=== PATIENT | male | born 1945 | race Caucasian/White ===

== ENCOUNTER 2021-10-19 07:44 | Day surgery (SDC) | payer MEDICARE ==
[2021-10-13 18:12] VITALS: BMI 25.5
--- NOTE | 2021-10-17 06:44 | P.GSHP ---
History of Present Illness H&P Date: 10/17/21 Chief Complaint: Hematuria, left flank pain Patient is 76-year-old white male with a history of urolithiasis and kidney stones. He has never required surgery for his kidney stones. He has recently experienced left flank discomfort, which she states resolved with NSAIDs. He denies dysuria but reports gross hematuria. CT scan shows left hydronephrosis due to a 2.1 cm left proximal ureteral calculus. Multiple left lower pole renal calculi measuring up to 1.6 cm in size were also seen. The CT scan suggests the presence of a pancreatic mass, but none was seen on MRI. He underwent cystoscopy, left ureteral stent insertion. Bloody reflux of urine from the left ureteral orifice was seen. He was also found to have a 2 cm bladder calculus. - Constitutional Constitutional: Denies chills, Denies fever - Genitourinary (Male) Genitourinary: Reports flank pain, Reports hematuria, Reports kidney stones Past Medical History Past Medical History: Hearing Disorder / Deafness, Hypertension Additional Past Medical History / Comment(s): History of kidney stones; malaria;. CAHUILLA History of Any Multi-Drug Resistant Organisms: None Reported Past Surgical History: Back Surgery Additional Past Surgical History / Comment(s): lumbar laminectomy 1986, CYSTOSC OPY WITH STENT PLACEMENT, Past Anesthesia/Blood Transfusion Reactions: No Reported Reaction Smoking Status: Never smoker - Past Family History Mother History Unknown: Yes Family Medical History: No Reported History Medications and Allergies Home Medications Medication Instructions Recorded Confirmed Type Cefuroxime Axetil [Ceftin] 500 mg PO BID 4 Days #8 tab 10/09/21 10/13/21 Rx amLODIPine [Norvasc] 10 mg PO DAILY 30 Days #30 tab 10/09/21 10/13/21 Rx Allergies Allergy/AdvReac Type Severity Reaction Status Date / Time Penicillins Allergy Unknown Verified 10/13/21 17:27 Surgical - Exam - General well developed, well nourished, no distress - Respiratory normal respiratory effort - Abdomen Abdomen: soft, non tender, no guarding, no rigid, no rebound Hernia: umbilical - Genitourinary normal penis with no external lesions, testicles non-tender - Psychiatric oriented to time, oriented to person, oriented to place, speech is normal, memory intact Results - Imaging CT scan - abdomen: report reviewed, image reviewed Assessment and Plan (1) Calculus in bladder Status: Acute Code(s): N21.0 - CALCULUS IN BLADDER SNOMED Code(s): 63535415 (2) Ureterolithiasis Status: Acute Code(s): N20.1 - CALCULUS OF URETER SNOMED Code(s): 66313032 Plan: Cystoscopy, cystolithotripsy, left ureteral stent removal, left ureteroscopy with Holmium laser lithotripsy and possible stone basketing. The patient has multiple left lower pole renal calculi and has been advised to undergo a left percutaneous nephrolithotomy, which he refuses due to the requirement of an external nephrostomy tube. Given the stone burden of the bladder calculus and ureteral calculus, multiple procedures may be required. The procedure has been reviewed in detail with the patient. He is aware of potential risks, which include anesthesia, bleeding, infection, bladder perforation, and ureteral injury.
[~2021-10-19 07:44] MED LIST: DEXAMETHASONE SOD PHOSPHATE 4 MG/ML 1 ML VIAL IV ONE; HYDROmorphone 0.5 MG/0.5 ML SYRINGE IVP PRN; LACTATED RINGERS 1,000 ML IV SCH; MIDAZOLAM 2 MG/2 ML VIAL IV PRN; ONDANSETRON 4 MG/2 ML VIAL IVP ONE
--- NOTE | 2021-10-19 08:12 | XR ---
EXAMINATION TYPE: XR KUB DATE OF EXAM: 10/19/2021 Comparison: None Clinical History: 76-year-old male into 0.1, preop for left-sided kidney stone N20.1 Findings: Left-sided ureteral stent in place. Large calcifications projecting at the lower pole of the left kid giana with aggregate dimension of 2.4 cm. Additional large calculus in the lower left side of the pelvi s along the distal course of the stent measuring 2.0 cm. Additional large 2.0 cm calcification along the proximal third left ureteral stent. Pelvic phleboliths. Nonobstructive bowel gas pattern. Degener ation and axial convex curvature of the lumbar spine. Impression: 1. Left-sided ureteral stent. 2.0 cm chunky calculus along the proximal third left ureter. 2. 2.4 cm calculus lower pole left kidney. 3. 2.0 cm bladder calculus.
[2021-10-19 08:52] VITALS: RESP 16
[2021-10-19] MEDS ORDERED: fentaNYL (PF) 50 MCG/ML 2 ML AMP ONE (09:48)
[2021-10-19] MEDS ORDERED: ePHEDrine 50 MG/ML 1 ML AMP ONE (09:48)
[2021-10-19] MEDS ORDERED: PHENYLEPHRINE-0.9% NACL SYG 1,000 MCG/10 ML SYRINGE ONE (09:48)
[2021-10-19] MEDS ORDERED: HYDROmorphone (PF) 1 MG/ML ONE (09:48)
[2021-10-19] MEDS ORDERED: MIDAZOLAM 2 MG/2 ML VIAL ONE (09:48)
[2021-10-19] MEDS ORDERED: SUCCINYLCHOLINE CHLORIDE 100 MG/5 ML SYR IV ONE (09:48)
[2021-10-19] MEDS ORDERED: PROPOFOL 10 MG/ML 20 ML VIAL IV ONE (09:48)
[2021-10-19] MEDS ORDERED: LACTATED RINGERS 1,000 ML IV ONE (12:05)
[2021-10-19 12:26] VITALS: TEMP 98.1
--- NOTE | 2021-10-19 12:44 | FL ---
Fluoroscopy HISTORY: Ureteral stone removal and stent placement 11 seconds fluoroscopy time supplied to the referring clinician. 6 intraoperative C-arm images docum ent the procedure. See dictated report from urology.
[2021-10-19 13:54] VITALS: BP 152/74; PULSE 73
--- NOTE | 2021-11-05 18:28 | P.OP ---
Date of Procedure: 10/19/21 Preoperative Diagnosis: Left ureteral calculus, bladder calculus Postoperative Diagnosis: Same Procedure(s) Performed: Cystoscopy, left ureteroscopy with Holmium laser lithotripsy, left ureteral stent insertion Anesthesia: MARY ANN Surgeon: Hai Reyes Estimated Blood Loss (ml): 0 IV fluids (ml): 1,000 Pathology: none sent Condition: stable Disposition: PACU Indications for Procedure: Patient is 76-year-old white male with a history of urolithiasis and kidney stones. He has never required surgery for his kidney stones. He has recently experienced left flank discomfort, which she states resolved with NSAIDs. He denies dysuria but reports gross hematuria. CT scan shows left hydronephrosis due to a 2.1 cm left proximal ureteral calculus. Multiple left lower pole renal calculi measuring up to 1.6 cm in size were also seen. The CT scan suggests the presence of a pancreatic mass, but none was seen on MRI. He underwent cystoscopy, left ureteral stent insertion. Bloody reflux of urine from the left ureteral orifice was seen. He was also found to have a 2 cm bladder calculus. Operative Findings: Large left mid ureteral calculus, partially fragmented. Bladder calculus, untreated. Description of Procedure: The patient was taken to the operating room and placed in the dorsolithotomy position, with legs supported in Austin stirrups. The external genitalia was prepped and draped sterilely. The 30 lens was used to introduce the 22-Liberian Stortz cystoscopic sheath through the urethra and into the bladder under direct vision. The prostatic urethra showed evidence of mild lateral lobe enlargement. Upon entering the bladder, a 2 cm bladder calculus was seen. The distal end of the left ureteral stent was grasped with grasping forceps and removed along with the cystoscope. The [employer] semirigid ureteroscope was advanced into the bladder under direct vision. The left ureteral orifice was cannulated, and the ureteroscope was slowly advanced under direct vision. However, due to ureteral angulation the midureteral calculus could not be reached. Therefore, a 0.035 inch Glidewire was passed through the ureteroscope and up to the renal pelvis. A second Glidewire was then placed, and an 11/13-Liberian ureteral access catheter was passed over that wire, up to the calculus. The Zaldivar flexible ureteroscope was then passed through the ureteral access catheter sheath and up to the calculus. The 270 holmium laser probe was then used to perform lithotripsy. The calculus was extremely dense, making fragmentation difficult. The calculus was adherent to the mucosa in some areas. The lateral half of the calculus was fragmented, creating an open lumen within the ureter. However, the medial aspect of the calculus appeared impacted within the ureteral wall, and due to angulation fragmentation of this portion of the calculus was difficult. As a considerable amount of fragmentation had been performed, the decision was made to terminate the procedure. There was no evidence of ureteral perforation. The ureteral access catheter sheath was removed along with the ureteroscope. The Glidewire was backloaded into the cystoscope, which was passed into the bladder. A 28 cm, 6-Liberian double-J ureteral stent was placed over the wire. Proper stent positioning was verified fluoroscopically and endoscopically. The bladder was emptied and the cystoscope removed. The patient tolerated the procedure well was taken to the recovery room in stable condition.
== END 2021-10-19 14:09 | disposition home or self-care (01) ==
LOC: OR 07:44
PROVIDERS: ATTEND Urology
DX: N20.1 Calculus of ureter (principal); Z87.442 Personal history of urinary calculi; H91.90 Unspecified hearing loss, unspecified ear; I10 Essential (primary) hypertension; Z98.890 Other specified postprocedural states; Z79.899 Other long term (current) drug therapy; Z88.0 Allergy status to penicillin
CPT/HCPCS: 74018; 52356; C2625; C1769; J2250; J1100; J0690; J2405; J3010; J1170; J2370; J0330; J2704

== ENCOUNTER → 2021-11-17 | Day surgery (SDC) | payer MEDICARE ==
[2021-11-16 09:11] VITALS: BMI 25.6
[~2021-11-17] MED LIST changes: +GLYCOPYRROLATE 0.2 MG/ML 2 ML VIAL ONE; +HYDROmorphone (PF) 1 MG/ML ONE; +LACTATED RINGERS 1,000 ML IV ONE; +LIDOCAINE 1% INJ 10MG/ML (20 ML MDV) ONE; +MIDAZOLAM 2 MG/2 ML VIAL IVP ONE; +MIDAZOLAM 2 MG/2 ML VIAL ONE; +NEOSTIGMINE 1 MG/ML 10 ML VIAL ONE; +PHENYLEPHRINE-0.9% NACL SYG 1,000 MCG/10 ML SYRINGE ONE; +PROPOFOL 10 MG/ML 20 ML VIAL IV ONE; +ROCURONIUM 10 MG/ML (5 ML VIAL) IV ONE; +SUCCINYLCHOLINE CHLORIDE VIAL 200 MG/10 ML VIAL IV ONE; +ePHEDrine 50 MG/ML 1 ML VIAL ONE; +fentaNYL (PF) 50 MCG/ML 2 ML AMP ONE
--- NOTE | 2021-11-17 10:49 | XR ---
EXAMINATION TYPE: XR KUB DATE OF EXAM: 11/17/2021 COMPARISON: X-ray dated 10/19/2021 INDICATION: Preoperative lithotripsy TECHNIQUE: Standard 2 views of the abdomen FINDINGS: Left double-J ureteric stent. Persistent left upper to mid ureteric stone measuring up to 2.4 cm with tiny adjacent millimetric calculus. Persistent cluster of stones at the lower pole of the left kidne y measuring together up to 3.7 cm. Tiny more superior adjacent calculi measuring up to 5 mm. Persistent left urinary bladder stone measu ring up to 2.2 cm. Degenerative changes of the lumbar spine most evident at L4-5 level. IMPRESSION: Persistent urinary calculi and left-sided double-J ureteric stent as described above.
[2021-11-17 15:33] VITALS: TEMP 98
[2021-11-17 15:39] VITALS: RESP 16
--- NOTE | 2021-11-17 15:52 | FL ---
Fluoroscopy HISTORY: Left ureteral calculus 21 seconds fluoroscopy time supplied to the referring clinician. 1 intraoperative C-arm images docum ent the procedure. See dictated report from urology.
--- NOTE | 2021-11-17 17:15 | P.OP ---
Date of Procedure: 11/17/21 Preoperative Diagnosis: Left ureteral calculus, bladder calculus Postoperative Diagnosis: Same Procedure(s) Performed: Cystoscopy, left ureteroscopy with Holmium laser lithotripsy and stone basketing, left ureteral stent change, cystolithotripsy Anesthesia: MARY ANN Surgeon: Hai Reyes Estimated Blood Loss (ml): 10 IV fluids (ml): 800 Pathology: other (Calculus fragments, sent for chemical analysis) Condition: stable Disposition: PACU Indications for Procedure: The patient is 76-year-old white male with a history of urolithiasis and kidney stones. He has never required surgery for his kidney stones. He recently experienced left flank discomfort associated with gross hematuria. CT scan showed left hydronephrosis due to a 2.1 cm left proximal ureteral calculus. Multiple left lower pole renal calculi measuring up to 1.6 cm in size were also seen. The CT scan suggested the presence of a pancreatic mass, but none was seen on MRI. He underwent cystoscopy, left ureteral stent insertion. Bloody reflux of urine from the left ureteral orifice was seen. He was also found to have a 2 cm bladder calculus. The patient was advised to undergo a left percutaneous nephrolithotomy and cystolithotripsy. However, he is adamant that he does not want a percutaneous procedure and has elected to simply undergo removal of the bladder calculus and the left ureteral calculus. He underwent left ureteroscopy with laser lithotripsy, partially fragmenting the large left mid ureteral calculus. He now comes for removal of the remainder of that calculus, as well as the bladder calculus. Operative Findings: Large left mid ureteral calculus, fragmented completely. Calculus fragments exceeding 2 mm in size were removed via stone basketing. The bladder calculus was removed in its entirety. Description of Procedure: The patient was taken to the operating room and placed in the dorsolithotomy position, with legs supported in Austin stirrups. The external genitalia was prepped and draped sterilely. The 30 lens was used to introduce the 21-Hungarian Zaldivar cystoscopic sheath through the urethra and into the bladder under direct vision. The prostatic urethra showed evidence of mild lateral lobe enlargement. The bladder was examined in its entirety. A 2 cm bladder calculus was seen. The distal end of the left ureteral stent was grasped with grasping forceps and removed along with the cystoscope. A 0.038 inch Glidewire was passed through the stent and up to the left renal pelvis. An 11/13-Hungarian ureteral access catheter was passed over the wire, up to the mid ureter. The [employer] flexible ureteroscope was then passed through the ureteral access catheter sheath, up to the stone. The 272 micron Holmium laser probe was passed through the ureteroscope, and lithotripsy was performed. In some areas, the calculus was adherent to the ureteral mucosa, and it was gently pried away from the mucosa using the laser fiber tip. Care was taken to avoid any laser injury coming into contact with the ureter. Once the calculus had been fragmented completely, a 1.9-Hungarian nitinol basket was used to remove all calculus fragments exceeding 2 mm in size. Once the calculus fragments were removed, the Glidewire was passed through the ureteroscope, which was removed along with the ureteral access catheter sheath. Pullout ureteroscopy showed no evidence of ureteral perforation. The Glidewire was backloaded into the cystoscope, which was passed into the bladder. A 28 cm, 6-Hungarian double-J ureteral stent was placed over the wire. Proper stent positioning was verified fluoroscopically and endoscopically. The 272 holmium laser probe was passed through the cystoscope, and cystoscopy lithotripsy was performed. After fragmenting the calculus, all calculus fragments were removed from the bladder. There was no evidence of bladder perforation, and no active bleeding. The bladder was emptied and the cystoscope removed. The patient tolerated the procedure well and was taken to the recovery room in stable condition. [facility] [place] Report: Procedure Acuity: Elective Stone Size and Location: Ureteral Dilation: No Ureteral Access Sheath Used: Yes Stone Sent for Analysis: Yes All Stones/Fragments Were Removed with a Basket: No Complications: No Preoperative Antibiotics Given: Yes Stent Placed: Yes If Stent Placed, Was String Left Attached: No If Stent Placed, When is it to be Removed: 1 month Discharge Medications:
[2021-11-17 18:54] VITALS: BP 165/90; PULSE 93
--- NOTE | 2021-11-21 09:06 | P.GSHP ---
History of Present Illness H&P Date: 11/06/21 Chief Complaint: Hematuria, left flank pain The patient is 76-year-old white male with a history of urolithiasis and kidney stones. He has never required surgery for his kidney stones. He recently experienced left flank discomfort associated with gross hematuria. CT scan s howed left hydronephrosis due to a 2.1 cm left proximal ureteral calculus. Multiple left lower pole renal calculi measuring up to 1.6 cm in size were also seen. The CT scan suggested the presence of a pancreatic mass, but none was seen on MRI. He underwent cystoscopy, left ureteral stent insertion. Bloody reflux of urine from the left ureteral orifice was seen. He was also found to have a 2 cm bladder calculus. The patient was advised to undergo a left percutaneous nephrolithotomy and cystolithotripsy. However, he is adamant that he does not want a percutaneous procedure and has elected to simply undergo removal of the bladder calculus and the left ureteral calculus. He underwent left ureteroscopy with laser lithotripsy, partially fragmenting the large left mid ureteral calculus. He now comes for removal of the remainder of that calculus, as well as the bladder calculus. - Constitutional Constitutional: Denies chills, Denies fever - Genitourinary (Male) Genitourinary: Reports flank pain, Reports hematuria, Reports kidney stones, Denies dysuria Past Medical History Past Medical History: Hearing Disorder / Deafness, Hypertension Additional Past Medical History / Comment(s): History of kidney stones; malaria;. PALA History of Any Multi-Drug Resistant Organisms: None Reported Past Surgical History: Back Surgery Additional Past Surgical History / Comment(s): lumbar laminectomy 1986, CYSTOSCOPY WITH STENT PLACEMENT, Past Anesthesia/Blood Transfusion Reactions: No Reported Reaction Smoking Status: Never smoker - Past Family History Mother History Unknown: Yes Family Medical History: No Reported History Medications and Allergies Home Medications Medication Instructions Recorded Confirmed Type amLODIPine [Norvasc] 10 mg PO DAILY 30 Days #30 tab 10/09/21 11/17/21 Rx Allergies Allergy/AdvReac Type Severity Reaction Status Date / Time Penicillins Allergy Unknown Verified 11/16/21 08:39 Surgical - Exam - General well developed, well nourished, no distress - Respiratory normal respiratory effort - Abdomen Abdomen: soft, non tender, no guarding, no rigid, no rebound - Psychiatric oriented to time, oriented to person, oriented to place, speech is normal, memory intact Results - Imaging CT scan - abdomen: report reviewed, image reviewed Assessment and Plan (1) Ureterolithiasis Status: Acute Code(s): N20.1 - CALCULUS OF URETER SNOMED Code(s): 43945755 (2) Calculus in bladder Status: Acute Code(s): N21.0 - CALCULUS IN BLADDER SNOMED Code(s): 03118052 Plan: Cystoscopy, cystolithotripsy, left ureteral stent removal, left ureteroscopy with Holmium laser lithotripsy and possible stone basketing. Given the stone burden of the bladder calculus and ureteral calculus, multiple procedures may be required. The procedure has been reviewed in detail with the patient. He is aware of potential risks, which include anesthesia, bleeding, infection, bladder perforation, and ureteral injury.
== END | disposition home or self-care (01) ==
LOC: OR 09:42
PROVIDERS: ATTEND Urology
DX: N13.2 Hydronephrosis with renal and ureteral calculous obstruction (principal); N21.0 Calculus in bladder; I10 Essential (primary) hypertension; H91.90 Unspecified hearing loss, unspecified ear; Z98.890 Other specified postprocedural states; Z79.899 Other long term (current) drug therapy; Z88.0 Allergy status to penicillin
CPT/HCPCS: 82365; 74018; 52356; C2625; C1769; C1894; J2250; J0330; J1100; J2710; J0690; J2405; J2001; J3010; J1170; J2370; J2704

== ENCOUNTER → 2022-01-25 | Outpatient (CLI) | payer MEDICARE ==
--- NOTE | 2022-01-25 12:52 | XR ---
EXAMINATION TYPE: XR KUB DATE OF EXAM: 01/25/2022 HISTORY: Pain Comparison: 11/17/2021 Single KUB is submitted for interpretation. Findings: Right renal calculi: None Visualized. Right ureteral calculi: None Visualized. Left renal calculi: Large calculus overlying the lower pole left kidney measures 2.7 cm versus 3.3 c m previously. Previously noted smaller superior calculi are not visible this time. Left ureteral calculi: Calculi along the left ureter are not present on today's study. Left ureteral stent has been removed. Pelvic calcifications: Pelvic phleboliths noted. Bowel gas pattern is unremarkable. No free air. No mass effects. IMPRESSION: 1. As above
--- NOTE | 2022-01-25 12:56 | US ---
EXAMINATION TYPE: US kidneys/renal and bladder DATE OF EXAM: 01/25/2022 COMPARISON: CT abdomen and pelvis October 07, 2021 CLINICAL HISTORY: N20.1 CALCULUS OF LT URETER. HX of stones. EXAM MEASUREMENTS: Right Kidney: 12.6 x 5.4 x 5.2 cm Left Kidney: 11.9 x 4.3 x 3.1 cm Right Kidney: Cystic area seen lower pole 1.4 x 1.2 x 1.5 cm Left Kidney: Echogenic area seen lower pole 2.4 x 1.3 x 1.7 cm. Bladder: wnl Bilateral Jets seen: YES Kidney size is symmetric and within normal limits. Technologist identifies 1.4 cm benign-appearing th in-walled cyst in the lower pole right kidney. Large shadowing calculus in the left kidney is redemon strated correlating with CT. No hydronephrosis seen bilaterally currently. The urinary bladder is sat isfactorily distended. Bilateral ureteral jets are seen. IMPRESSION: Interval successful treatment of large obstructing left ureter calculus. No hydronephrosi s seen bilaterally currently.
== END | disposition home or self-care (01) ==
LOC: RADUSWWP 11:59
PROVIDERS: ATTEND Urology
DX: N20.2 Calculus of kidney with calculus of ureter (principal)
CPT/HCPCS: 74018; 76770